=== PATIENT | female | born 1965 ===

== ENCOUNTER 2022-09-13 15:18 | Outpatient (REF) | payer MEDICARE, MEDICAID, SELFPAY ==
[2022-09-16 10:19] LABS: HPV mRNA E6/E7 rflx Detected (Not Detected)
[2022-09-30 07:54] LABS: HPV 16 RNA NOT DETECTED (NOT DETECTED)
== END 2022-09-13 15:19 | disposition home or self-care (01) ==
LOC: HO.LNP 15:18
PROVIDERS: PCP Internal Medicine; Visit Provider Obstetrics & Gynecology
DX: Z01.419 Encounter for gynecological examination (general) (routine) without abnormal findings (principal)
CPT/HCPCS: 87624; 87625; 88142

== ENCOUNTER 2022-10-19 08:34 | Outpatient (REF) | payer MEDICARE, MEDICAID, SELFPAY | END 2022-10-19 08:35 | disposition home or self-care (01) | LOC: HO.LNP 08:34 | PROVIDERS: PCP Internal Medicine; Visit Provider Obstetrics & Gynecology | DX: R87.810 Cervical high risk human papillomavirus (HPV) DNA test positive (principal) | CPT/HCPCS: 57454; 88305 ==

== ENCOUNTER → 2022-11-14 08:46 | Outpatient (BNVA) | payer MEDICARE, MEDICAID, SELFPAY | PROVIDERS: PCP Internal Medicine; Visit Provider Obstetrics & Gynecology | DX: N87.0 Mild cervical dysplasia (principal); Z71.2 Person consulting for explanation of examination or test findings | CPT/HCPCS: 99212 ==

== ENCOUNTER 2023-01-25 13:45 | Outpatient (AMB) | payer MEDICARE, MEDICAID, SELFPAY ==
[2023-01-25 13:54] VITALS: BP 118/70; PULSE 90; O2SAT 98; BMI 24.6
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
== END 2023-01-25 14:31 | disposition home or self-care (01) ==
PROVIDERS: PCP Internal Medicine; Visit Provider Nurse Practitioner Family
DX: M54.50 Low back pain, unspecified (principal); F31.9 Bipolar disorder, unspecified
CPT/HCPCS: 99213

== ENCOUNTER 2023-04-21 07:57 | Emergency (ER) | payer OTHER, SELFPAY ==
--- NOTE | ~2023-04-21 | CT_ITS ---
EXAMINATION: CT ABDOMEN AND PELVIS WITHOUT CONTRAST CLINICAL INFORMATION: Left-sided abdomen pain. Diarrhea COMPARISON: None available. TECHNIQUE: Multidetector volumetric imaging was performed from the superior aspect of the liver through the pubic symphysis. Sagittal and coronal reformatted images were obtained on the technologist's workstation. This CT examination was performed using dose optimization techniques as appropriate, variously including the following: *Automated exposure control *Adjustment of mA and/or kV according to patient size (this includes techniques or standardized protocols for targeted exams where dose is matched to indication/reason for exam; i.e. extremities or head) *Use of iterative reconstruction technique DLP: 516 mGy-cm FINDINGS: LUNG BASES: The visualized lung bases are unremarkable. There are a few scattered reticular lung base opacities greater on right. These have a subpleural distribution. This could reflect some fibrosis or evidence of remote pneumonia. LIVER, GALLBLADDER, AND BILIARY TREE: The liver contour is smooth. No suspicious focal lesion in this nonenhanced exam. The gallbladder is contracted. No opaque calculus. PANCREAS: No suspicious abnormality SPLEEN: Within normal limits ADRENAL GLANDS: Normal KIDNEYS AND URETERS: There is mild prominence of the renal pelvis and ureters on each side without distention of the infundibula or calyces. This extends to the level of the urinary bladder which is distended. There is a punctate calcification in the medial cortex of the right kidney. The appearance does not suggest this is within the collecting system. BLADDER: The bladder is distended. No focal lesion. GASTROINTESTINAL TRACT: There is gas and fecal residue throughout the colon greatest in the proximal colon. No localized pericolonic fat stranding. No evidence of high-grade small bowel obstruction. No convincing evidence of acute appendicitis. ABDOMINAL WALL: No significant hernia is appreciated. LYMPH NODES: There are no measurably enlarged abdominal or pelvic lymph nodes. VASCULAR: There is no abdominal aortic aneurysm. There is atherosclerotic calcification. PELVIC VISCERA: No suspicious abnormality. OSSEOUS STRUCTURES: No suspicious focal lesion. There are degenerative changes in the spine. CT/CT abdomen pelvis wo IV con IMPRESSION: No acute abnormality demonstrated. The urinary bladder is distended which likely accounts for mild fullness of the urinary collecting system on each side. Gas and fecal residue in the colon. Fleischner guidelines were followed.
[2023-04-21 08:09] VITALS: BP 144/84; PULSE 121; RESP 16; TEMP 36.8; O2SAT 99
--- NOTE | 2023-04-21 08:21 | ECG_ITS ---
Test Reason : NAUSEA Blood Pressure : / mmHG Vent. Rate : 098 BPM Atrial Rate : 098 BPM P-R Int : 134 ms QRS Dur : 068 ms QT Int : 330 ms P-R-T Axes : 048 002 -16 degrees QTc Int : 421 ms Normal sinus rhythm Nonspecific T wave abnormality Abnormal ECG No previous ECGs available Referred By: Mami Green Electronically Signed By:CHRISSIE MARIN MD
[2023-04-21 08:23] VITALS: BP 147/86; PULSE 96; RESP 18; TEMP 36.8; O2SAT 98; BMI 22.7
--- NOTE | 2023-04-21 08:52 | ED_ITS ---
HPI - General Adult General Chief complaint: General Medical Stated complaint: weakness, fall 04/20 Time Seen by Provider: 04/21/23 08:04 Source: patient Mode of arrival: ambulatory Limitations: no limitations History of Present Illness HPI narrative: 58 y/o female with history of pulmonary fibrosis, CKD III, bipolar disorder, chronic pain on chronic opiates who presents to the ER c/o 2 weeks of body aches, joint pains, left sided abdominal pain and green, watery diarrhea. She states yesterday she fell in the kitchen and hit her head on the side of the fridge. No LOC. She states she has had a shaking in my stomach like a vibration sensation that is causing her to have pain all over including all of her muscles and joints. She denies fevers but has had chills and no appetite. She has been trying to keep up her oral hydration w/ protein shakes. She denies vomiting. She has had green diarrhea which has significantly slowed down in the last few days, she thinks because she is not eating. No recent abx or travel. Seen at Urgent Care yesterday and started on amoxicillin for LLQ tenderness. MD complaint: abdominal pain, diffuse body pain Onset (ago): week(s) (2) Location: chest, back, abdomen, left, right, upper extremity and lower extremity Severity: severe Quality: aching Pain Consistency: constant Relieving factors: none Exacerbating factors: other (staying in 1 position for too long) Associated symptoms: loss of appetite, malaise and weakness Treatments prior to arrival: none Related Data Home Medications Medication Instructions Recorded Confirmed lamotrigine 200 mg tablet 200 mg PO BID 06/12/22 06/12/22 pantoprazole 20 mg tablet,delayed 20 mg PO DAILY 06/12/22 06/12/22 release risperidone 1 mg tablet (Risperdal) 1 mg PO BID 06/12/22 06/12/22 Previous Rx's Medication Instructions Recorded triamcinolone acetonide 0.5 % 1 appl topical BID #15 grams 06/12/22 topical cream diazepam 2 mg tablet (Valium) 2 mg PO BEDTIME PRN sleep #30 tabs 06/14/22 diclofenac sodium 1 % topical gel 4 g topical QID #100 grams 07/26/22 (Voltaren Arthritis Pain) benzonatate 100 mg capsule 100 mg PO BID #20 caps 07/27/22 fluticasone fur. 200 mcg-umeclid 1 inh inhalation DAILY #60 ea 09/11/22 62.5 mcg-vilant 25 mcg inhalat.powder (Trelegy Ellipta) albuterol sulfate 90 mcg/actuation 2 puff inhalation Q6H PRN for 11/10/22 aerosol inhaler (Ventolin HFA) wheezing #18 ea cyclobenzaprine 5 mg tablet 5 mg PO TID PRN muscle spasm #14 01/25/23 tabs sennosides 8.6 mg-docusate sodium 2 tab-cap (2 x 8.6-50 mg) PO 02/05/23 50 mg tablet (Senna-S) BEDTIME PRN constipation 30 days #60 tabs Allergies Allergy/AdvReac Type Severity Reaction Status Date / Time No Known Allergies Allergy Verified 04/21/23 08:28 Review of Systems 2 Review of Systems: Yes all other systems are reviewed and are negative [facility] Past Medical History Medical History History of esophageal dilatation Surgical History History of appendectomy History of back surgery History of carpal tunnel release History of facial surgery Family History Family History Father Brain tumor Son Alcohol abuse Mother Alcohol abuse Social History Social History Household Members Other:: son Housing: Apartment Alcohol intake: never Patient Tobacco Use Status: Former Tobacco user Years Smoked: quit 2013 1/2 pack a day 30 years e-Cigarette/Vaping Use: Never Used Advance Directives: No Advance Directives Information Provided: No Current occupational status: unemployed Sexual orientation: Straight/Heterosexual Gender identity: Female Cognitive needs: No Hearing needs: No Vision needs: No Physical Exam ED Vital Signs: Vital Signs - 24 hr 04/21/23 08:09 04/21/23 08:23 04/21/23 12:36 Temperature 98.3 F 98.3 F 98.1 F Pulse Rate 121 H 96 98 Respiratory Rate 16 18 18 Blood Pressure 144/84 H 147/86 H 149/91 H Pulse Oximetry 99 98 98 Oxygen Delivery Method Room Air Room Air Room Air BMI result Body Mass Index 22.7 Appearance: Alert. Oriented X3. No acute distress. Head: normocephalic, atraumatic. Eyes: Pupils equal, round and reactive to light. ENT: Pharynx normal. No tonsillar swelling or exudate. Neck: Normal inspection. Neck supple. CVS: Normal heart rate and rhythm. Pulses normal. Respiratory: No respiratory distress. Breath sounds normal. Abdomen: Soft with mild left upper quadrant tenderness, normal active +BS x4 Skin: Skin warm and dry. Normal skin color. Normal skin turgor. No rashes. Extremities: No lower extremity edema. No joint swelling. Compartments are soft and compressible. Neuro/psych: Oriented X 3. No motor deficit. No sensory deficit. CN II-XII intact. Normal speech and cognition. Steady gait Medications Administered Discontinued Medications Generic Name Dose Route Start Last Admin Trade Name Freq PRN Reason Stop Dose Admin Sodium Chloride 1,000 mls @ 999 mls/hr 04/21/23 08:30 04/21/23 11:54 Ns IVCONT 04/21/23 09:30 Infused .Q1H1M RAMÓN Infusion Sodium Chloride 1,000 mls @ 999 mls/hr 04/21/23 12:00 04/21/23 12:09 Ns IVCONT 04/21/23 13:00 999 mls/hr .Q1H1M RAMÓN Administration Ondansetron HCl 4 mg 04/21/23 11:50 04/21/23 12:04 Ondansetron Hcl 4 Mg/2 Ml Vial IVPUSH 04/21/23 11:51 4 mg ONCE ONE Administration Tramadol HCl 25 mg 04/21/23 11:50 04/21/23 12:03 Tramadol Hcl 50 Mg Tablet PO 04/21/23 11:51 25 mg ONCE ONE Administration Medical Decision Making Medical Decision Making MDM Narrative: 58 yo female presenting with 2 weeks of diffuse body aches and joint pain along with left sided abd pain and diarrhea. She has had decreased PO intake and is worried about her kidney function. recently started on abx for ?diverticulitis. VSS On arrival. exam is benign with some mild tenderness in the left middle abd and left upper abd. Labs show normal CBC. SCr 1.18. lytes ok. CT scan abd without any acute process and UA negative for infection. she was given IVF, antiemetics, tramadol for pain with some improvement in her symptoms. she states she has chronic pain and has been on tramadol for 14 years so it does not work very well. she is tolerating PO here in the ER and has had no BMs to collect stool sample. she would like to go home. at this time no reason to keep in the ER. comfortable w/ discharge home with supportive care and outpatient follow up. Differential Diagnosis Differential Diagnoses: The differential diagnosis associated with the presentation includes acute diverticulitis, bacterial vs viral gastroenteritis, cdiff, dehydration, metabolic abnormality, UTI, pyelonephritis, colitis, acute cholecystitis Admission/Observation Consideration of admission/observation: Escalation of care including admission/observation considered Lab Data MDM Lab Attestation statement: I reviewed the patient's lab results. 04/21/23 08:49 04/21/23 08:48 Labs: Lab Results 04/21/23 04/21/23 04/21/23 Range/Units 08:48 08:49 12:39 WBC 9.4 (4.8-10.8) X10*3/uL RBC 4.30 (4.20-5.50) X10*6/uL Hgb 13.4 (12.0-16.0) g/dl Hct 39.8 (37.0-47.0) % MCV 92.6 (80.0-98.0) fL MCH 31.2 (27.0-33.0) pg MCHC 33.7 (31.0-35.0) g/dl RDW 13.1 (11.0-16.0) % Plt Count 363 (160-400) X10*3/uL MPV 9.3 L (9.4-12.3) fL Immature Gran % (Auto) 0.3 (0.0-0.4) % Neut % (Auto) 69.5 (45-73) % Lymph % (Auto) 20.6 (20-40) % [place] % (Auto) 6.3 (2-11) % Eos % (Auto) 2.6 (0-4) % Baso % (Auto) 0.7 (0-2) % Lymph # (Auto) 1.9 (1.2-4.9) X10*3/uL [place] # (Auto) 0.6 (0.1-1.2) X10*3/uL Eos # (Auto) 0.2 (0.0-0.4) X10*3/uL Baso # (Auto) 0.1 (0.0-0.2) X10*3/uL Abs Immat Gran (auto) 0.03 (0.00-0.03) X10*3/uL Absolute Neuts (auto) 6.5 (2.0-8.3) x10*3/uL Absolute Nucleated RBC 0.000 (0.0-0.012) X10*3/uL Nucleated RBC % (auto) 0.0 (0.0-0.2) /100WBC ESR 26 H (0-20) MM/HR Sodium 140 (135-145) mmol/L Potassium 3.9 (3.3-5.1) mmol/L Chloride 107 (96-108) mmol/L Carbon Dioxide 24 (22-29) mmol/L Anion Gap 13 (12-20) BUN 21 H (9-16) mg/dL Creatinine 1.13 (0.5-1.4) mg/dL Estim Creat Clear Calc 48.2 Estimated GFR 49 Random Glucose 91 (60-115) mg/dL Calcium 10.2 (8.4-10.2) mg/dL Magnesium 2.2 (1.6-2.6) mg/dL Total Bilirubin 0.7 (0.0-1.0) mg/dL Direct Bilirubin 0.2 (0.0-0.5) mg/dL AST 14 (5-31) U/L ALT 11 (0-31) U/L Alkaline Phosphatase 82 (39-117) U/L Total Creatine Kinase 18 L (26-140) U/L Troponin I High Sens < 2.7 (<3.5-17.0) ng/L C-Reactive Protein 0.22 (< or = 0.50) mg/dL Total Protein 7.6 (6.5-8.0) g/dL Albumin 4.2 (3.5-5.0) g/dL Urine Color Yellow Urine Appearance Clear Urine pH 6.5 (5.0-9.0) Ur Specific [place] 1.010 (1.005-1.025) Urine Protein Negative (Neg-Trace) mg/dL Urine Glucose (UA) Negative (Negative) mg/dL Urine Ketones Negative (Negative) mg/dL Urine Blood Negative (Negative) Urine Nitrite Negative (Negative) Ur Leukocyte Esterase Trace H (Negative) Urine RBC 0-2 (0-2) /HPF Urine WBC 0-5 (0-5) /HPF Ur Squamous Epith Cells 0-2 (0-2) /HPF Urine Bacteria None Seen (None Seen) Hyaline Casts 0-2 (0-2) /LPF Independent Interpretation I performed an independent interpretation of an: EKG and CT Scan Interpretation: no pericolonic stranding or abscess, agree w/ radiology read ekg w/ normal sinus rhythm, HR 100 bpm, normal OR interval, no ST segment elevations or depressions Radiology Impression Discussion of test interpretation with radiology: I have reviewed the radiologist's reading. Radiologist Impression: CT/CT abdomen pelvis wo IV con IMPRESSION: No acute abnormality demonstrated. The urinary bladder is distended which likely accounts for mild fullness of the urinary collecting system on each side. Gas and fecal residue in the colon. External Record Review External record reviewed: Office record and Prior outpatient radiology Prescription Management I considered prescription management with: Pain Medication Chronic Conditions Patient?s care impacted by: Other (chronic pain on chronic opiates) Critical Care Time Critical Care Time Critical Care Time: No Discharge Plan Discharge Clinical Impression: Gastroenteritis Patient Disposition: Home, Self-Care Instructions: Gastroenteritis (DC) Additional Instructions: Your CT scan today was normal. You lab workup today was unremarkable. Recommend stopping the previously prescribed antibiotics. Take the prescribed Bentyl as directed. Follow-up with your primary care doctor. You lab workup today was unremarkable. You most likely have a viral GI bug also known as gastroenteritis. Treatment is supportive care, symptoms usually resolve on their own Recommend rest and plenty of oral hydration. Stick to a bland diet like soup and toast while you are not feeling well. Take the prescribed medication as needed for nausea. Recommend over the counter Pepto Bismol or Imodium for upset stomach and diarrhea. Follow up with your doctor as needed. If you develop new or worsening symptoms call 911 or come back to the ER for further evaluation. Prescriptions: No Action diazepam [Valium] 2 mg tablet 2 mg PO BEDTIME PRN (Reason: sleep) Qty: 30 0RF diclofenac sodium [Voltaren Arthritis Pain] 1 % gel 4 g topical QID Qty: 100 0RF Rx Instructions: apply to single knee, ankle, foot; for foot includes sole/toes/top of foot benzonatate 100 mg capsule 100 mg PO BID Qty: 20 0RF albuterol sulfate [Ventolin HFA] 90 mcg/actuation HFA aerosol inhaler 2 puff inhalation Q6H PRN (Reason: for wheezing) Qty: 18 1RF sennosides-docusate sodium [Senna-S] 8.6-50 mg tablet 2 tab-cap PO BEDTIME PRN (Reason: constipation) 30 Days Qty: 60 2RF lamotrigine 200 mg tablet 200 mg PO BID risperidone [Risperdal] 1 mg tablet 1 mg PO BID pantoprazole 20 mg tablet,delayed release (DR/EC) 20 mg PO DAILY triamcinolone acetonide 0.5 % cream 1 appl topical BID Qty: 15 0RF cyclobenzaprine 5 mg tablet 5 mg PO TID PRN (Reason: muscle spasm) Qty: 14 0RF Trelegy Ellipta 200-62.5-25 mcg blister with device 1 inh inhalation DAILY Qty: 60 5RF Referrals: Po,Nghia Nava MD [Primary Care Provider] -
[2023-04-21 08:54] LABS: MANUAL DIFF FLAG NO
[2023-04-21 08:57] LABS: Basophils Absolute Auto 0.1 X10*3/uL (0.0-0.2); Basophils Percent Auto 0.7 % (0-2); Eosinophils Absolute Auto 0.2 X10*3/uL (0.0-0.4); Eosinophils Percent Auto 2.6 % (0-4); Hematocrit 39.8 % (37.0-47.0); Hemoglobin 13.4 g/dl (12.0-16.0); Imm Gran Abs Auto 0.03 X10*3/uL (0.00-0.03); Imm Gran Pct Auto 0.3 % (0.0-0.4); Lymphocytes Absolute Auto 1.9 X10*3/uL (1.2-4.9); Lymphocytes Percent Auto 20.6 % (20-40); Mean Corpuscular HGB Conc 33.7 g/dl (31.0-35.0); Mean Corpuscular Hemoglobin 31.2 pg (27.0-33.0); Mean Corpuscular Volume 92.6 fL (80.0-98.0); Mean Platelet Volume 9.3 fL (9.4-12.3); Monocytes Absolute Auto 0.6 X10*3/uL (0.1-1.2); Monocytes Percent Auto 6.3 % (2-11); Neutrophils Absolute Auto 6.5 x10*3/uL (2.0-8.3); Neutrophils Percent Auto 69.5 % (45-73); Platelet Count 363 X10*3/uL (160-400); Red Cell Distribution Width 13.1 % (11.0-16.0); White Blood Count 9.4 X10*3/uL (4.8-10.8)
[2023-04-21 09:20] LABS: Alanine Aminotransferase 11 U/L (0-31); Albumin Level 4.2 g/dL (3.5-5.0); Alkaline Phosphatase 82 U/L (39-117); Anion Gap 13 (12-20); Aspartate Amino Transferase 14 U/L (5-31); Bilirubin Direct 0.2 mg/dL (0.0-0.5); Bilirubin Total 0.7 mg/dL (0.0-1.0); Blood Urea Nitrogen 21 mg/dL (9-16); C Reactive Protein 0.22 mg/dL (< or = 0.50); Calcium 10.2 mg/dL (8.4-10.2); Carbon Dioxide 24 mmol/L (22-29); Chloride 107 mmol/L (96-108); Creatinine Clr Calc Pharmacy 48.2; Estimated Glomerular Filt Rate 49; Glucose Random 91 mg/dL (60-115); Magnesium 2.2 mg/dL (1.6-2.6); Potassium 3.9 mmol/L (3.3-5.1); Sodium 140 mmol/L (135-145); Total Protein 7.6 g/dL (6.5-8.0)
[2023-04-21] MEDS: 0.9 % Sodium Chloride 1,000 ML 999 ML IVCONT ×2 (09:32→12:09)
[2023-04-21 09:34] LABS: Troponin-I High Sensitivity < 2.7 ng/L (<3.5-17.0)
[2023-04-21 10:07] LABS: Erythrocyte Sedimentation Rate 26 MM/HR (0-20)
[2023-04-21] MEDS: traMADoL HCL 50 MG TABLET 25 MG PO (12:03)
[2023-04-21] MEDS: ondansetron HCL 4 MG/2 ML VIAL IVPUSH (12:04)
[2023-04-21 12:36] VITALS: BP 149/91; PULSE 98; RESP 18; TEMP 36.7; O2SAT 98
[2023-04-21 12:48] LABS: Appearance Urine Clear; Color Urine Yellow; Glucose Urine UA Negative (Negative); Leukocyte Esterase Urine Trace (Negative); Nitrite Urine Negative (Negative); PH 6.5 (5.0-9.0); UMIC TRIGGER UACC YES; Urine Blood Negative (Negative); Urine Ketones Negative (Negative); Urine Protein Negative (Neg-Trace)
[2023-04-21 13:03] LABS: Bacteria Urine None Seen (None Seen); Hyaline Casts Urine 0-2 /LPF (0-2); RBC Urine 0-2 /HPF (0-2); Squamous Epithelial Cell Urine 0-2 /HPF (0-2); WBC Urine 0-5 /HPF (0-5)
== END 2023-04-21 13:45 | disposition home or self-care (01) ==
PROVIDERS: Physician Assistant; Emergency Provider Internal Medicine; PCP Internal Medicine
DX: K52.9 Noninfective gastroenteritis and colitis, unspecified (principal); R53.1 Weakness; N18.30 Chronic kidney disease, stage 3 unspecified; G89.4 Chronic pain syndrome; Z79.891 Long term (current) use of opiate analgesic; Z87.891 Personal history of nicotine dependence
CPT/HCPCS: 0241U; 36415; 74176; 80048; 80076; 81001; 81003; 82550; 83735; 84484; 85025; 85652; 86140; 93005; 96361; 96374; 99284; J2405

== ENCOUNTER 2023-05-09 10:17 | Outpatient (AMB) | payer MEDICARE, MEDICAID, SELFPAY ==
--- NOTE | 2023-05-09 10:27 | MHC.PC.OV ---
Vital Signs 05/09/23 10:31 Height 5 ft 5 in Weight 128 lb 2 oz BMI 21.3 BP 110/72 Blood Pressure Location Lt brachial Position Sitting Pulse 78 Pulse Source Pulse Oximeter Pulse Oximetry (%) 97 Oxygen Delivery Method Room Air Intake Visit Reasons: Follow Up From urgent Care Intake Note: Patient is here to follow-up after a visit the emergency department at [facility] [place] on 04/24/23. Memory loss, loss of appetite, vomiting, no sense of smell and taste. Cable Inspector Required: No Matt[employer] Supervisor: Present Accompanied by: Friend Allergies No Known Allergies Allergy (Verified 05/09/23 10:30) Medication List - Last Reconciled 05/09/23 by Nghia Miner MD albuterol sulfate 90 mcg/actuation (Ventolin HFA) 2 puffs inhalation Q6H PRN buspirone 10 mg PO BID cyclobenzaprine 5 mg PO TID PRN diclofenac sodium 1% (Voltaren Arthritis Pain) 4 grams topical QID gpkqhebyvnz-pfbbbnwet-tbnkqkgg 200-62.5-25 mcg (Trelegy Ellipta) 1 inh inhalation DAILY lamotrigine 200 mg PO BID pantoprazole 20 mg PO DAILY risperidone (Risperdal) 1 mg PO BID triamcinolone acetonide 0.5% 1 appl topical BID Tobacco use date assessed: 05/09/23 Dental Screening Dental Screen Date: 05/09/23 Did you have a dental visit in the last 12 months?: Yes Did you have a dental problem in the last 6 months where you did not have access to dental care?: No Was dental information given to patient?: Patient has dentist HPI Follow Up From urgent Care HPI Details 58-year-old female with GERD bipolar disorder chronic kidney disease coming in for follow-up. Last seen in December 2022 had low back pain patient has declined physical therapy muscle relaxants sent. Patient is due for mammogram. Review of the notes 04/21/2023 was in the emergency room presenting in the ER with myalgia left-sided abdominal pain and watery diarrhea diagnosis of gastroenteritis CT scan negative. Patient had some notes from 2013 showing neck problems had injections. PAtient states still having diarrhea and states. [facility] Medical History History of esophageal dilatation Surgical History History of back surgery History of carpal tunnel release History of facial surgery History of appendectomy Family History Father Brain tumor Son Alcohol abuse Mother Alcohol abuse Social History Household Members Other:: son Housing: Apartment Alcohol intake: never Patient Tobacco Use Status: Former Tobacco user Years Smoked: quit 2013 1/2 pack a day 30 years e-Cigarette/Vaping Use: Never Used Second Hand Smoke Exposure: No service: No Current occupational status: unemployed Sexual orientation: Straight/Heterosexual Gender identity: Female Cognitive needs: No Hearing needs: No Vision needs: No Female Reproductive History Menstrual Age of Menarche: 14 Questionnaire Thrive Questionnaire Date Thrive assessed: 01/25/23 REYES-7 AMB Questionnaire REYES-7 Date REYES - 7 assessed: 01/25/23 Source: Developed by Drs. Romulo Azevedo, Iva Calderon, Estrada Jenkins and colleagues, with an educational joao from [employer]. Physical exam (Primary Care) Vital Signs: Last Vital Signs Pulse 78 05/09/23 10:31 BP 110/72 05/09/23 10:31 Pulse Ox 97 05/09/23 10:31 Oxygen Delivery Method Room Air 05/09/23 10:31 BMI result Body Mass Index 21.3 Tobacco/Smoking Status: Tobacco use Status Tobacco use date assessed 05/09/23 05/09/23 10:43 Patient Tobacco Use Status Former Tobacco user 05/09/23 10:43 e-Cigarette/Vaping Use Never Used 05/09/23 10:43 Thrive Assessment: Date of Thrive Assessment Date Thrive assessed 01/25/23 05/09/23 10:43 Const General: alert; No acute distress Eyes Conjunctivae: conjunctivae normal Resp Auscultation: clear to auscultation bilaterally Cardio Rate: regular rate Rhythm: regular rhythm GI Other: Soft tender diffuse no guarding no rebound ++bowel sounds Extrem General: Yes normal to inspection and No edema Assessment and Plan Assessment & Plan (1) Gastroenteritis: Code(s): K52.9 - Noninfective gastroenteritis and colitis, unspecified Plan: BR AT diet, blood work discussed and Ct scan - will refer to GI. Stop protein shakes, nausea medication sent bland diet (2) CKD (chronic kidney disease): Code(s): N18.9 - Chronic kidney disease, unspecified Plan: Keep well hydrated avoid NSAIDs (3) Pulmonary fibrosis: Comment: CT scan July 2022 Code(s): J84.10 - Pulmonary fibrosis, unspecified Plan: Continue to follow-up with Pulmonary (4) Bipolar disorder: Comment: family counselling Code(s): F31.9 - Bipolar disorder, unspecified Plan: Continue with counseling and therapy (5) Breast cancer screening by mammogram: Comment: Kristie 04/2022 Code(s): Z12.31 - Encounter for screening mammogram for malignant neoplasm of breast Plan: Reminded about mammogram (6) GERD (gastroesophageal reflux disease): Code(s): K21.9 - Gastro-esophageal reflux disease without esophagitis Plan: Avoid the foods that causes that usually spicy foods, tomato products, juices, coffee, soda and foods that your sensitive to. After eating do not lie down, allow 3-4 hours before in lie down. And keep the head of bed above 30 degrees to avoid the acid from going up. (7) Insomnia: Code(s): G47.00 - Insomnia, unspecified Orders: Orders Phosphorus Today K52.9 - Noninfective gastroenteritis and colitis, unspecified H pylori Ag Stool Today K52.9 - Noninfective gastroenteritis and colitis, unspecified Leukocytes Stool Qualitative Today K52.9 - Noninfective gastroenteritis and colitis, unspecified Magnesium Today K52.9 - Noninfective gastroenteritis and colitis, unspecified Ova and Parasite Today K52.9 - Noninfective gastroenteritis and colitis, unspecified Referrals Gastroenterology Referral K52.9 - Noninfective gastroenteritis and colitis, unspecified Medications: New ropinirole administer 1-3 hours before bedtime 0.5 mg PO BEDTIME 30 tabs 0RF ondansetron 8 mg PO Q8H PRN 30 tabs 0RF nausea and vomiting K52.9 - Noninfective gastroenteritis and colitis, unspecified trazodone 50 mg PO BEDTIME PRN 30 tabs 0RF sleep G47.00 - Insomnia, unspecified Coding Level of Care Code Est Pt Level 4 (06972) Diagnoses Gastroenteritis K52.9 CKD (chronic kidney disease) N18.9 Pulmonary fibrosis J84.10 Bipolar disorder F31.9 Breast cancer screening by mammogram Z12.31 GERD (gastroesophageal reflux disease) K21.9 Insomnia G47.00
[2023-05-09 10:31] VITALS: BP 110/72; PULSE 78; O2SAT 97; BMI 21.3
== END 2023-05-09 11:33 | disposition home or self-care (01) ==
PROVIDERS: PCP Internal Medicine; Visit Provider Internal Medicine
DX: K52.9 Noninfective gastroenteritis and colitis, unspecified (principal); N18.9 Chronic kidney disease, unspecified; J84.10 Pulmonary fibrosis, unspecified; F31.9 Bipolar disorder, unspecified; Z12.31 Encounter for screening mammogram for malignant neoplasm of breast; K21.9 Gastro-esophageal reflux disease without esophagitis; G47.00 Insomnia, unspecified
CPT/HCPCS: 99214

== ENCOUNTER 2023-05-09 11:39 | Outpatient (REF) | payer MEDICARE, MEDICAID, SELFPAY ==
[2023-05-09 11:56] LABS: MANUAL DIFF FLAG NO
[2023-05-09 12:18] LABS: Basophils Absolute Auto 0.1 X10*3/uL (0.0-0.2); Eosinophils Absolute Auto 0.1 X10*3/uL (0.0-0.4); Eosinophils Percent Auto 1.1 % (0-4); Hematocrit 41.4 % (37.0-47.0); Imm Gran Abs Auto 0.05 X10*3/uL (0.00-0.03); Imm Gran Pct Auto 0.4 % (0.0-0.4); Lymphocytes Percent Auto 26.2 % (20-40); Mean Corpuscular HGB Conc 33.8 g/dl (31.0-35.0); Mean Corpuscular Hemoglobin 31.3 pg (27.0-33.0); Mean Corpuscular Volume 92.6 fL (80.0-98.0); Mean Platelet Volume 9.6 fL (9.4-12.3); Monocytes Absolute Auto 0.6 X10*3/uL (0.1-1.2); Monocytes Percent Auto 5.7 % (2-11); Neutrophils Absolute Auto 7.4 x10*3/uL (2.0-8.3); Neutrophils Percent Auto 65.6 % (45-73); Platelet Count 705 X10*3/uL (160-400); Red Blood Count 4.47 X10*6/uL (4.20-5.50); Red Cell Distribution Width 13.1 % (11.0-16.0); White Blood Count 11.3 X10*3/uL (4.8-10.8)
[2023-05-09 12:47] LABS: Alanine Aminotransferase 14 U/L (0-31); Albumin Level 4.3 g/dL (3.5-5.0); Alkaline Phosphatase 88 U/L (39-117); Anion Gap 16 (12-20); Aspartate Amino Transferase 15 U/L (5-31); Bilirubin Total 0.5 mg/dL (0.0-1.0); Blood Urea Nitrogen 20 mg/dL (9-16); Carbon Dioxide 25 mmol/L (22-29); Chloride 101 mmol/L (96-108); Cholesterol 207 mg/dL (<200); Estimated Glomerular Filt Rate 44; Glucose Random 103 mg/dL (60-115); HDL Cholesterol 53 mg/dL (>40); LDL Cholesterol Calculated 134 mg/dL (<100); Magnesium 2.4 mg/dL (1.6-2.6); Phosphorus 4.3 mg/dL (2.7-4.5); Sodium 138 mmol/L (135-145); Total Protein 8.4 g/dL (6.5-8.0); Triglycerides 104 mg/dL (<150)
[2023-05-09 13:02] LABS: Free T4 (Free Thyroxine) 1.08 ng/dL (0.71-1.85); Thyroid Stimulating Hormone 1.56 uIU/mL (0.32-4.0); Vitamin D 25-OH Total 53.7 ng/mL (>30)
[2023-05-09 13:14] LABS: Folate 14.4 ng/mL (> or = 4.0); Vitamin B12 1124 pg/mL (200-900)
== END 2023-05-09 11:40 | disposition home or self-care (01) ==
LOC: HO.LAB 11:39
PROVIDERS: PCP Internal Medicine; Visit Provider Internal Medicine
DX: E78.00 Pure hypercholesterolemia, unspecified (principal); K21.9 Gastro-esophageal reflux disease without esophagitis; K52.9 Noninfective gastroenteritis and colitis, unspecified; E55.9 Vitamin D deficiency, unspecified
CPT/HCPCS: 36415; 80053; 80061; 82306; 82607; 82746; 83735; 84100; 84439; 84443; 85025

== ENCOUNTER 2023-05-15 13:06 | Outpatient (AMB) | payer MEDICARE, MEDICAID, SELFPAY ==
[2023-05-15 13:08] VITALS: BP 146/66; PULSE 98; O2SAT 96; BMI 23.0
--- NOTE | 2023-05-15 13:08 | A.OFFPC_ITS ---
Vital Signs 05/15/23 13:08 Height 5 ft 5 in Weight 138 lb 0.6 oz BMI 23.0 BP 146/66 H Blood Pressure Location Lt brachial Position Sitting Pulse 98 Pulse Source Pulse Oximeter Pulse Oximetry (%) 96 Oxygen Delivery Method Room Air Intake Visit Reasons: Swollen Lymph nodes, vomiting Intake Note: pt states nausea and vomiting, swollen glands and headache Heel Seat Fitter Machine Required: No Allergies No Known Allergies Allergy (Verified 05/15/23 13:17) Medication List - Last Reconciled 05/15/23 by DAX Vargas albuterol sulfate 90 mcg/actuation (Ventolin HFA) 2 puffs inhalation Q6H PRN buspirone 10 mg PO BID cyclobenzaprine 5 mg PO TID PRN diclofenac sodium 1% (Voltaren Arthritis Pain) 4 grams topical QID jbyhudyvvmr-nkuihriwk-ahbvpjqv 200-62.5-25 mcg (Trelegy Ellipta) 1 inh inhalation DAILY lamotrigine 200 mg PO BID ondansetron 8 mg PO Q8H PRN pantoprazole 20 mg PO DAILY risperidone (Risperdal) 1 mg PO BID ropinirole 0.5 mg PO BEDTIME trazodone 50 mg PO BEDTIME PRN triamcinolone acetonide 0.5% 1 appl topical BID Tobacco use date assessed: 05/15/23 Dental Screening Dental Screen Date: 05/15/23 Did you have a dental visit in the last 12 months?: Yes Did you have a dental problem in the last 6 months where you did not have access to dental care?: No Was dental information given to patient?: Patient has dentist HPI Swollen Lymph nodes, vomiting HPI Details Patient is a 58-year-old female who presents today for the same day visit due to swollen lymph nodes for the past couple days and vomiting/nausea for the past [address] Miner. Medical history significant for GERD, bipolar disorder, CKD, constipation, insomnia, thrombocytosis-will have repeat blood work tomorrow-platelets 705 05/2023. Patient reports that 04/2023 she went to urgent care and was diagnosed with diverticulitis and she was treated with antibiotics doxycycline and amoxicillin for 10 days, then she went to [facility] and had abdominal CT scan done with no acute abnormality, she was discharged home with gastroenteritis 04/2023. Patient was seen by her PCP 05/09/2023 due to continued symptoms and blood work was ordered as well as stool samples and GI referral was placed-patient will be seeing [facility] 06/13/2023. Patient reports that she is not eating enough, reports having you bites of food today and then she vomited, reports taking Zofran as prescribed with no much improvement in nausea. Reports generalized abdominal pain. Reports diarrhea for 4 weeks in the past, no bowel movement for 6 days now after taking Imodium, reports passing gas. Reports taking senna last night. Reports neck pain due to neck lumps for the past couple days, no ear pain, no sore throat, no fever or chills. Reports she will be taking aleve now for pain. Also requesting opioids for pain, declined refill on cyclobenzaprine. Also reports that trazodone is not helping her with sleep, would like to try something else. 04/21/2023 CT/CT abdomen pelvis wo IV con IMPRESSION: No acute abnormality demonstrated. The urinary bladder is distended which likely accounts for mild fullness of the urinary collecting system on each side. Gas and fecal residue in the colon. [facility] Medical History History of esophageal dilatation Surgical History History of back surgery History of carpal tunnel release History of facial surgery History of appendectomy Family History Father Brain tumor Son Alcohol abuse Mother Alcohol abuse Social History Household Members Other:: son Housing: Apartment Alcohol intake: never Patient Tobacco Use Status: Former Tobacco user Years Smoked: quit 2013 1/2 pack a day 30 years e-Cigarette/Vaping Use: Never Used Second Hand Smoke Exposure: No service: No Current occupational status: unemployed Sexual orientation: Straight/Heterosexual Gender identity: Female Cognitive needs: No Hearing needs: No Vision needs: No Female Reproductive History Menstrual Age of Menarche: 14 Questionnaire Thrive Questionnaire Date Thrive assessed: 01/25/23 AUDIT C Alcohol Use Questionnaire (AUDIT-C) 1. How often do you have a drink containing alcohol?: Never 2. How many drinks containing alcohol do you have on a typical day when you are drinking?: 1 or 2 (0) 3. How often do you have six or more drinks on one occasion?: Never Total Score: 0 Score Reviewed/Action Taken: No REYES-7 AMB Questionnaire REYES-7 Date REYES - 7 assessed: 01/25/23 Source: Developed by Drs. Romulo Azevedo, Iva Calderon, Estrada Jenkins and colleagues, with an educational joao from [employer]. Review of Systems Const Denies body aches, Denies chills, Reports difficulty sleeping, Denies fever(s) and Reports headache(s) ENT Details: Neck pain Denies dizziness, Denies otalgia, Reports headache(s), Denies nasal discharge, Denies sinus pain and Denies sore throat Card Denies chest pain, Denies edema, Denies lightheadedness and Denies dyspnea Resp Denies cough, Denies dyspnea and Denies wheezing GI Reports abdominal pain, Reports bloating, Denies constipation, Denies diarrhea, Reports nausea and Reports vomiting Denies dysuria Musc Denies myalgias Skin/Breast Reports as per HPI and Denies rash Neuro Denies dizziness and Reports headache(s) Aller/Immun Denies wheezing Physical exam (Primary Care) Vital Signs: Last Vital Signs Pulse 98 05/15/23 13:08 BP 146/66 H 05/15/23 13:08 Pulse Ox 96 05/15/23 13:08 Oxygen Delivery Method Room Air 05/15/23 13:08 BMI result Body Mass Index 23.0 Tobacco/Smoking Status: Tobacco use Status Tobacco use date assessed 05/15/23 05/15/23 13:09 Patient Tobacco Use Status Former Tobacco user 05/15/23 13:09 e-Cigarette/Vaping Use Never Used 05/15/23 13:09 Thrive Assessment: Date of Thrive Assessment Date Thrive assessed 01/25/23 05/15/23 13:09 Const General: cooperative and no acute distress Orientation/consciousness: patient oriented x3 HENMT Head: Yes normocephalic and Yes atraumatic Ears: TM's normal bilaterally Face and sinus: Yes sinuses nontender Mouth: oropharynx normal and moist mucous membranes Throat: Yes posterior oropharynx normal Eyes General: appearance normal, both eyes and all related structures Pupils: Equal, round and reactive pupils present Neck Other: Bilateral neck inferior to ears with tender lumps about 1 cm, skin is intact Neck: Yes normal visual inspection and Yes full ROM Resp Effort & Inspection: normal respiratory effort and able to speak in complete sentences Auscultation: clear to auscultation bilaterally, no crackles, no rales, no rhonchi and no wheezes Cardio Rate: regular rate Rhythm: regular rhythm Heart sounds: S1 normal heart sound present and S2 normal heart sound present GI Palpation (GI): Soft to palpation, not firm, Tenderness to palpation present (GI) in the RUQ; with no rebound tenderness, no guarding, not rigid and no hepatosplenomegaly Auscultation: normal bowel sounds Skin General skin exam: no rashes or lesions noted Neuro General: patient oriented x3 Cranial nerves: Yes Equal, round and reactive pupils present Gait exam (Neuro): Normal gait present Extrem General: Yes full ROM and No edema Assessment and Plan Assessment & Plan (1) Localized swelling, mass and lump, neck: Code(s): R22.1 - Localized swelling, mass and lump, neck Plan: Bilateral neck inferior to ears with tender lumps about 1 cm, skin is intact Will obtain ultrasound Offered patient to sent ibuprofen-she has declined, also offered to send cyclobenzaprine-she has declined Patient is to continue taking iuzc-qhy-vlyudui Aleve as needed Encouraged warm compresses p.r.n. Patient requested opioids for pain - she was notified that this [facility] will not prescribe opioids (2) Insomnia: Code(s): G47.00 - Insomnia, unspecified Plan: Stop trazodone Start Seroquel 25 mg at bedtime p.r.n. Sleep hygiene (3) Thrombocytosis: Code(s): D75.839 - Thrombocytosis, unspecified Plan: Platelets 705 05/2023 Patient is to recheck blood work tomorrow, she has orders from her PCP (4) Nausea and vomiting: Code(s): R11.2 - Nausea with vomiting, unspecified Plan: [place] diet Continue Zofran 8 mg every 8 hours p.r.n. Keep appointment with GI as scheduled Plan Keep appointment with PCP as scheduled or follow-up sooner as needed Patient also will need to complete stool samples that were ordered by her PCP when starts moving bowels, she reports passing gas now Orders: Orders US soft tiss head and/or neck Today R22.1 - Localized swelling, mass and lump, neck Medications: New quetiapine (Seroquel) 25 mg PO BEDTIME PRN 30 tabs 0RF sleep G47.00 - Insomnia, unspecified Discontinued trazodone Discontinued Reason: Doctor's Order 50 mg PO BEDTIME PRN 30 tabs 0RF sleep G47.00 - Insomnia, unspecified Coding Level of Care Code Est Pt Level 4 (06769) Diagnoses Localized swelling, mass and lump, neck R22.1 Insomnia G47.00 Thrombocytosis D75.839 Nausea and vomiting R11.2
== END 2023-05-15 14:02 | disposition home or self-care (01) ==
PROVIDERS: PCP Internal Medicine; Visit Provider Nurse Practitioner Family
DX: R22.1 Localized swelling, mass and lump, neck (principal); G47.00 Insomnia, unspecified; D75.839 Thrombocytosis, unspecified; R11.2 Nausea with vomiting, unspecified
CPT/HCPCS: 99214

== ENCOUNTER 2023-06-13 11:55 | Outpatient (REF) | payer MEDICARE, MEDICAID, SELFPAY ==
[2023-06-13 15:15] LABS: C Reactive Protein 1.59 mg/dL (< or = 0.50)
[2023-06-14 12:48] LABS: Transglutaminase Ab IgG 2.3 U/mL; Transglutaminase IgA <1.0 U/mL
== END 2023-06-13 11:56 | disposition home or self-care (01) ==
LOC: HO.LAB 11:55
PROVIDERS: PCP Internal Medicine; Visit Provider Nurse Practitioner
DX: R11.2 Nausea with vomiting, unspecified (principal); R19.7 Diarrhea, unspecified; Z87.11 Personal history of peptic ulcer disease; Z91.09 Other allergy status, other than to drugs and biological substances
CPT/HCPCS: 36415; 86003; 86140; 86364; 99202

== ENCOUNTER 2023-06-13 11:55 | Outpatient (AMB) | payer MEDICARE, MEDICAID, SELFPAY ==
--- NOTE | 2023-06-13 11:56 | A.OFFVIS_ITS ---
Intake Vital Signs 3 06/13/23 11:57 Height 5 ft 5 in Weight 135 lb 5.821 oz BMI 22.5 BP 117/55 L Blood Pressure Location Lt brachial Position Sitting Pulse 111 H Intake Visit Reasons: Gastroenteritis and colitis Intake Note: Patient presents to in office visit today as a new patient for gastroenteritis and colitis. CC: Pt states she was very sick for 3 months, sometimes she can't eat food at all and other times she eats it and throws it back up. She also c/o neck pain, swelling from lymph nodes, weakness, headache, very high leukocytes. Patient with acid reflux, constipation, and diarrhea. She also reports renal failure and pulmonary fibrosis. She s/p esophagus dilation about 4 years ago in [place]. [employer] Required: No Allergies No Known Allergies Allergy (Verified 06/13/23 12:02) HPI Gastroenteritis and colitis 2 HPI0 Details 58-year-old female here for initial eval uation of ?gastroenteritis and colitis. ? she is referred by Hector Duong of [facility] primary care. PMX Pulmonary fibrosis chronic kidney disease bipolar disorder GERD Constipation History of abnormal Pap smear Thrombocytosis History of esophageal stricture with dilation Chronic neck and back pain Knee pain History of peptic ulcer disease * SURGICAL HISTORY Back and neck surgery - RFA lumbar, ? cervical discectomy PSSP Carpal tunnel release Facial surgery - reconstruction Appendectomy EGD/colonoscopy-4 years ago in [place] Laparoscopy r/t infected IUD C section * ALLERGIES: NKDA . * [employer] LABS: Laboratory Tests 04/21/23 05/09/23 05/09/23 08:49 11:54 11:54 WBC 11.3 H Hgb 14.0 Hct 41.4 Plt Count 705 H D Abs Immat Gran (au to) 0.05 H ESR 26 H Estimated GFR 44 Total Bilirubin 0.5 AST 15 ALT 14 Alkaline Phosphata se 88 TSH 1.[address] ABDOMEN AND PELVIS 04/21/23 FINDINGS: LUNG BASES: The visualized lung bases are unremarkable. There are a few scattered reticular lung base opacities greater on right. These have a subpleural distribution. This could reflect some fibrosis or evidence of remote pneumonia. LIVER, GALLBLADDER, AND BILIARY TREE: The liver contour is smooth. No suspicious focal lesion in this nonenhanced exam. The gallbladder is contracted. No opaque calculus. PANCREAS: No suspicious abnormality SPLEEN: Within normal limits ADRENAL GLANDS: Normal KIDNEYS AND URETERS: There is mild prominence of the renal pelvis and ureters on each side without distention of the infundibula or calyces. This extends to the level of the urinary bladder which is distended. There is a punctate calcification in the medial cortex of the right kidney. The appearance does not suggest this is within the collecting system. BLADDER: The bladder is distended. No focal lesion. GASTROINTESTINAL TRACT: There is gas and fecal residue throughout the colon greatest in the proximal colon. No localized pericolonic fat stranding. No evidence of high-grade small bowel obstruction. No convincing evidence of acute appendicitis. ABDOMINAL WALL: No significant hernia is appreciated. LYMPH NODES: There are no measurably enlarged abdominal or pelvic lymph nodes. VASCULAR: There is no abdominal aortic aneurysm. There is atherosclerotic calcification. PELVIC VISCERA: No suspicious abnormality. OSSEOUS STRUCTURES: No suspicious focal lesion. There are degenerative changes in the spine. CT/CT abdomen pelvis wo IV con IMPRESSION: No acute abnormality demonstrated. The urinary bladder is distended which likely accounts for mild fullness of the urinary collecting system on each side. Gas and fecal residue in the colon. TODAY'S VISIT She has had about 3 mos of trouble, she spent 7-9 weeks in bed as she was so weak she could not get up. She could not eat, the smell and taste of food would make her vomit. She could only take sips of fluids and she survived sipping on Protein shakes. She had to crawl to her BR she was so weak. No stool studies done despite copious watery diarrhea. She took imodium and then she could not produce a sample. Since she has had some stools that are like bricks or it is watery. Prior to this she struggles with CIC. Her father also struggled with CIC and would pass out from pushing. He also has leudocytosis and he of brain cancer. She is quite concerned that she may have some lingering malignancy since her leukocytosis is worsening per her report. Since these labs were taken at [facility] I do not have access to them. she presented to an Urgent Care in [place] and they said she had TICS, but no improvement. She called her PCP and he directed her to the ER and they said it was gastroenteritis, I just had to ride it out. She saw Dr. Miner and then presented to our ER again and she sat in a room for 4 hours and she left AMA I just ripped the IV out and left. She was in [place] last week because her brother found her unresponsive and she was found to have pneumonia. She was in for 5 day there. She has been home since the Sunday before last. She is concerned re: her leukocytosis. She had an episode of lymph node swelling around about her 3rd ER presentation with pain in her head that radiates down her pillow. She was recently dx'ed with pulmonary fibrosis after having covid pneumonia twice. She sees a pulm for this. She says she is now in renal failure, and she feels it is r/t her excessive ASA and motrin and tylenol because she is always in pain from FELIX to back (chronic and has had back surgeries) and knee pain. This has been her habit for over 12 years. No known FHX of similar gastric/colon problems. No stomach or crc. Her mother was healthy except for alcoholism. She had an EGD/colonoscopy 4 years ago in [place] or and she was told I have a lot of ulcers. She was given a medicine that was too expensive and she has been taking pantoprazole for years. It was just dropped to 20mg qd from 40mg qd. 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 She continues to have nausea and vomiting, even smelling my own hand will make me vomit. She seems to have multiple episodes of black outs where she will not remember periods of time when she has been active. She once came home with clothes that were not mine. She does not do street drugs and does not drink ETOH. She has also waken up on her BR floor and not known how she got there. She is uncertain if anyone is ever going to head CT on her. She lost 27 lbs during this period, she has gained 6 back as now she can tolerate some yogurt. She will be having an US of her neck, she changed PCP's to Dr. Ernestine Oquendo at [facility]. I want to get stool samples, CRP, RAST and TTGA. I will get lexus EGD/colonoscopy. ROV 4 weeks. Please get records from [facility] from recent hospitalization. [facility] Medical History (Updated 06/13/23 @ 14:54 by SEB Lundberg) Gastroenteritis Lumbar back pain Well woman exam Bilateral knee pain COVID-19 virus infection Colon cancer screening Breast cancer screening by mammogram Cervical cancer screening Medicare annual wellness visit, initial Esophageal dilatation History of esophageal dilatation Surgical History (Updated 06/13/23 @ 14:54 by SEB Lundberg) H/O laparoscopy S/P section History of esophagogastroduodenoscopy (EGD) H/O colonoscopy History of back surgery History of carpal tunnel release History of facial surgery History of appendectomy Family History Father Brain tumor Son Alcohol abuse Mother Alcohol abuse Social History Household Members Other:: son Housing: Apartment Alcohol intake: never Patient Tobacco Use Status: Former Tobacco user Years Smoked: quit 2013 1/2 pack a day 30 years e-Cigarette/Vaping Use: Never Used Second Hand Smoke Exposure: No service: No Current occupational status: unemployed Sexual orientation: Straight/Heterosexual Gender identity: Female Cognitive needs: No Hearing needs: No Vision needs: No Female Reproductive History Menstrual Age of Menarche: 14 Review of Systems Const Denies fatigue, Denies fever(s), Reports frequent falls, Reports headache(s), Denies night sweats, Reports poor appetite, Reports weakness and Reports weight loss ENT Details: Abnormal sense of smell Reports Normal hearing present, Denies dental pain, Denies dysphagia, Reports headache(s), Denies hearing loss, Denies mouth pain, Reports neck pain, Denies odynophagia, Denies throat swelling, Denies tongue swelling and Reports other (Dentition adequate) Card Reports syncope and Reports dyspnea on exertion Resp Reports dyspnea on exertion GI Denies abdominal pain, Denies melena, Denies bloating, Denies hematochezia, Reports constipation, Denies GI cramping, Denies dysphagia, Denies excessive flatus, Denies early satiety, Denies heartburn, Reports diarrhea, Reports nausea, Denies odynophagia, Reports vomiting and Denies hematemesis Musc Reports back pain, Reports arthralgias and Reports neck pain Skin/Breast Denies pruritus, Denies lesions, Denies rash and Denies jaundice Neuro Reports Normal hearing present, Denies Abnormal speech present, Reports syncope, Reports frequent falls, Reports headache(s), Reports memory loss and Reports weakness Psych Reports abnormal sleep pattern, Reports anxiety, Reports depression, Reports memory loss and Reports mood swings Endo Denies fatigue Juan/Lymph Reports lymphadenopathy Aller/Immun Denies throat swelling and Denies tongue swelling Physical Exam Vital Signs: Last Vital Signs Pulse 111 H 06/13/23 11:57 BP 117/55 L 06/13/23 11:57 BMI result Body Mass Index 22.5 Const General: cooperative, no acute distress, well developed and well groomed Nutritional Appearance: average body habitus and well nourished Orientation/consciousness: oriented to person, oriented to place and oriented to time Limitations: No language barrier HEENT Head: Yes normocephalic and Yes atraumatic Eyes General: appearance normal, both eyes and all related structures Pupils: Equal, round and reactive pupils present Neck Neck: Yes normal visual inspection and Yes no lymphadenopathy Thyroid: Thyroid normal Resp Effort & Inspection: normal respiratory effort and able to speak in complete sentences Auscultation: crackles bilateral and diffuse Cardio Rate: regular rate Rhythm: regular rhythm Heart sounds: Normal, physiologic split S2 sound present Peripheral pulses: radial pulses present and posterior tibial pulses present GI Inspection: No distended and No Abdominal panniculus present Palpation (GI): Soft to palpation, nontender, no guarding, not rigid and No hepatosplenomegaly present Percussion: Yes normal to percussion Auscultation: normal bowel sounds Rectal Exam - Female: deferred Abdomen image: 2 1. Surgical scar Skin General skin exam: no rashes or lesions noted, turgor normal, skin not dry, no jaundice, No spider nevi and no striae Rashes: no rashes Nails: normal Neuro General: oriented to person, oriented to place and oriented to time Cranial nerves: Yes Equal, round and reactive pupils present and Yes Normal hearing present Speech: No Abnormal speech present Extrem General: Yes normal to inspection, No clubbing, No cyanosis and No edema Psych Appearance: grossly normal and well kempt Mental Status: other Speech and movement: Pressured speech present Affect: Animated affect present and Anxious affect present Attitude: cooperative Thought process: not confabulating, Perseverating thought process present, Tangential thought process present and Racing thoughts present Thought content: Depressive thoughts present Insight: Poor insight present (Psych) Judgement: Poor judgement present (Psych) Assessment & Plan Assessment & Plan (1) Nausea and vomiting: Code(s): R11.2 - Nausea with vomiting, unspecified (2) Diarrhea: Code(s): R19.7 - Diarrhea, unspecified (3) History of peptic ulcer disease: Code(s): Z87.11 - Personal history of peptic ulcer disease Plan She has had about 3 mos of trouble, she spent 7-9 weeks in bed as she was so weak she could not get up. She could not eat, the smell and taste of food would make her vomit. She could only take sips of fluids and she survived sipping on Protein shakes. She had to crawl to her BR she was so weak. No stool studies done despite copious watery diarrhea. She took imodium and then she could not produce a sample. Since she has had some stools that are like bricks or it is watery. Prior to this she struggles with CIC. Her father also struggled with CIC and would pass out from pushing. He also has leudocytosis and he of brain cancer. She is quite concerned that she may have some lingering malignancy since her leukocytosis is worsening per her report. Since these labs were taken at [facility] I do not have access to them. she presented to an Urgent Care in [place] and they said she had TICS, but no improvement. She called her PCP and he directed her to the ER and they said it was gastroenteritis, I just had to ride it out. She saw Dr. Miner and then presented to our ER again and she sat in a room for 4 hours and she left AMA I just ripped the IV out and left. She was in [place] last week because her brother found her unresponsive and she was found to have pneumonia. She was in for 5 day there. She has been home since the Sunday before last. She is concerned re: her leukocytosis. She had an episode of lymph node swelling around about her 3rd ER presentation with pain in her head that radiates down her pillow. She was recently dx'ed with pulmonary fibrosis after having covid pneumonia twice. She sees a pulm for this. She says she is now in renal failure, and she feels it is r/t her excessive ASA and motrin and tylenol because she is always in pain from FELIX to back (chronic and has had back surgeries) and knee pain. This has been her habit for over 12 years. No known FHX of similar gastric/colon problems. No stomach or crc. Her mother was healthy except for alcoholism. She had an EGD/colonoscopy 4 years ago in [place] or and she was told I have a lot of ulcers. She was given a medicine that was too expensive and she has been taking pantoprazole for years. It was just dropped to 20mg qd from 40mg qd. 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 She continues to have nausea and vomiting, even smelling my own hand will make me vomit. She seems to have multiple episodes of black outs where she will not remember periods of time when she has been active. She once came home with clothes that were not mine. She does not do street drugs and does not drink ETOH. She has also waken up on her BR floor and not known how she got there. She is uncertain if anyone is ever going to head CT on her. She lost 27 lbs during this period, she has gained 6 back as now she can tolerate some yogurt. She will be having an US of her neck, she changed PCP's to Dr. Ernestine Oquendo at [facility]. I want to get stool samples, CRP, RAST and TTGA. I will get lexus EGD/colonoscopy. ROV 4 weeks. Please get records from [facility] from recent hospitalization. Orders: Orders 2 CDiff Gene PCR Today R11.2 - Nausea with vomiting, unspecified, R19.7 - Diarrhea, unspecified Rast Allergen Today R11.2 - Nausea with vomiting, unspecified, R19.7 - Diarrhea, unspecified Calprotectin, Fecal Today R11.2 - Nausea with vomiting, unspecified, R19.7 - Diarrhea, unspecified GI Panel Today R11.2 - Nausea with vomiting, unspecified, R19.7 - Diarrhea, unspecified Leukocytes Stool Qualitative Today K52.9 - Noninfective gastroenteritis and colitis, unspecified, R11.2 - Nausea with vomiting, unspecified, R19.7 - Diarrhea, unspecified Ova and Parasite Today K52.9 - Noninfective gastroenteritis and colitis, unspecified, R11.2 - Nausea with vomiting, unspecified, R19.7 - Diarrhea, unspecified EGD/[place] Combo - GI Use Only Today R11.2 - Nausea with vomiting, unspecified, R19.7 - Diarrhea, unspecified Transglutaminase IgA Today R11.2 - Nausea with vomiting, unspecified, R19.7 - Diarrhea, unspecified Transglutaminase Ab IgG Today R11.2 - Nausea with vomiting, unspecified, R19.7 - Diarrhea, unspecified C Reactive Protein Today R11.2 - Nausea with vomiting, unspecified, R19.7 - Diarrhea, unspecified Coding Level of Care Code New Pt Level 3 (84361) Diagnoses Nausea and vomiting R11.2 Diarrhea R19.7 History of peptic ulcer disease Z87.11
[2023-06-13 11:57] VITALS: BP 117/55; PULSE 111; BMI 22.5
== END 2023-06-13 13:24 | disposition home or self-care (01) ==
PROVIDERS: PCP Internal Medicine; Visit Provider Nurse Practitioner
DX: R11.2 Nausea with vomiting, unspecified (principal); R19.7 Diarrhea, unspecified; Z87.11 Personal history of peptic ulcer disease
CPT/HCPCS: 99203

== ENCOUNTER 2023-06-26 18:00 | Outpatient (REF) | payer MEDICARE, MEDICAID, SELFPAY ==
[2023-06-27 13:02] LABS: Leukocytes Stool Qualitative NEGATIVE (NEGATIVE)
[2023-06-27 13:11] LABS: CDiff Gene PCR NEGATIVE (Negative)
[2023-06-27 14:19] LABS: Adenovirus F 40/41 Not Detected (Not Detect.); Astrovirus Not Detected (Not Detect.); Campylobacter Not Detected (Not Detect.); Cryptosporidium Not Detected (Not Detect.); Cyclospora cayetanensis Not Detected (Not Detect.); E. coli EAEC Not Detected (Not Detect.); E. coli EPEC Not Detected (Not Detect.); E. coli ETEC Not Detected (Not Detect.); E. coli STEC Not Detected (Not Detect.); Entamoeba histolytica Not Detected (Not Detect.); Giardia lamblia Not Detected (Not Detect.); Norovirus GI/GII Not Detected (Not Detect.); Plesiomonas shigelloides Not Detected (Not Detect.); Rotavirus A Not Detected (Not Detect.); Salmonella Not Detected (Not Detect.); Sapovirus Not Detected (Not Detect.); Shigella sp./EIEC Not Detected (Not Detect.); Vibrio Not Detected (Not Detect.); Vibrio Cholerae Not Detected (Not Detect.); Yersinia enterocolitica Not Detected (Not Detect.)
[2023-07-03 22:29] LABS: Calprotectin, Fecal 9 mcg/g
== END 2023-06-26 18:01 | disposition home or self-care (01) ==
LOC: HO.LNP 18:00
PROVIDERS: Visit Provider Nurse Practitioner
DX: R11.2 Nausea with vomiting, unspecified (principal); K52.9 Noninfective gastroenteritis and colitis, unspecified
CPT/HCPCS: 83993; 87177; 87209; 87493; 87507; 89055

== ENCOUNTER 2023-06-27 11:38 | Day surgery (SDC) | payer MEDICARE, MEDICAID, SELFPAY ==
[2023-06-21 15:21] VITALS: BMI 22.5
[2023-06-27 11:41] VITALS: BP 146/78; PULSE 100; RESP 20; TEMP 36.9; O2SAT 99
[2023-06-27 11:50] VITALS: BMI 22.0
[2023-06-27] MEDS: Lactated Ringers 1,000 ML 50 ML IVCONT (12:06)
--- NOTE | 2023-06-27 12:45 | P.HPSUR_ITS ---
Pre-Procedural Eval Section A Date of Service: 06/27/23 Section B Chief Complaint: Diarrhea, unspecified Relevant Family History (Specify if Yes): No Relevant Social History: None Present Medications: see Short Stay Collaborative assessment Medical History: Significant History (Pulmonary fibrosis chronic kidney disease bipolar disorder GERD Constipation History of abnormal Pap smear Thrombocytosis History of esophageal stricture with dilation Chronic neck and back pain Knee pain History of peptic ulcer disease) History of Previous Operations: Relevant previous surgery/procedure and date(s) (Back and neck surgery - RFA lumbar, ? cervical discectomy PSSP Carpal tunnel release Facial surgery - reconstruction Appendectomy EGD/colonoscopy-4 years ago in [place] Laparoscopy r/t infected IUD C section) Allergies: Allergies Allergy/AdvReac Type Severity Reaction Status Date / Time No Known Allergies Allergy Verified 06/13/23 12:02 Review of Systems Sugical H&P ROS: Negative: Constitution, Cardiovascular, Respiratory, Neurological, Psychiatric, Hem-Onc, Allergic/Immunologic, Gastrointestinal, Genitourinary, Musculoskeletal, Integumentary, Endocrine and Eyes/Ears/Nose/Throat Exam Surgical H&P Exam: Normal: HEENT, Normal: Heart, Normal: Lungs, Normal: Extremities, Normal: Abdomen, Normal: Skin and Normal: Neurological Plan Diagnosis/Plan: Unchanged I have reviewed the history and physical and performed a pertinent physical examination on my patient. No changes have occurred unless specified. * Time Spent With Patient Time: Total time managing care of this patient today ____ minutes.
--- NOTE | 2023-06-27 12:51 | HO.ANESPROP2 ---
HPI - Anesthesia Eval Consult details Narrative: GED, Colonoscopy PMF Active Problems Active Problems: All Active Problems (Updated 06/27/23 @ 12:05 by Joan Little, RN) Amnesia memory loss (Acute) History of peptic ulcer disease (Acute) Knee pain (Acute) Chronic neck and back pain (Acute) Diarrhea (Acute) Nausea and vomiting (Acute) Localized swelling, mass and lump, neck (Acute) Thrombocytosis (Acute) Insomnia (Acute) Dysplasia of cervix, low grade (JAYESH 1) (Acute) Cervical high risk HPV (human papillomavirus) test positive (Acute) Constipation (Acute) Allergic contact dermatitis (Acute) CKD (chronic kidney disease) (Acute) Pulmonary fibrosis (Acute) Bipolar disorder (Acute) GERD (gastroesophageal reflux disease) (Acute) Past Medical History Medical History (Updated 06/27/23 @ 12:05 by Joan Little RN) Hx: recurrent pneumonia History of renal insufficiency Hx of pulmonary fibrosis Bipolar disorder GERD (gastroesophageal reflux disease) Chronic renal insufficiency Insomnia Thrombocytosis Back pain Peptic ulcer Esophageal dilatation Gastroenteritis Lumbar back pain Well woman exam Bilateral knee pain History of esophageal dilatation COVID-19 virus infection Colon cancer screening Breast cancer screening by mammogram Cervical cancer screening Medicare annual wellness visit, initial Family History Family History Father Brain tumor Son Alcohol abuse Mother Alcohol abuse Family history of problems with anesthesia: No Surgical History Surgical History (Updated 06/13/23 @ 14:54 by SEB Lundberg) H/O laparoscopy S/P section History of esophagogastroduodenoscopy (EGD) H/O colonoscopy History of back surgery History of carpal tunnel release History of facial surgery History of appendectomy History of Problems with Anesthesia: No Social History Social History Household Members Other:: son Housing: Apartment Alcohol intake: never Patient Tobacco Use Status: Former Tobacco user Years Smoked: quit 2013 1/2 pack a day 30 years e-Cigarette/Vaping Use: Never Used Second Hand Smoke Exposure: No Are you DNR?: No Advance Directives: No Advance Directives Information Provided: Yes service: No Current occupational status: unemployed Sexual orientation: Straight/Heterosexual Gender identity: Female Cognitive needs: No Hearing needs: No Vision needs: No Meds Allergies Allergy/AdvReac Type Severity Reaction Status Date / Time No Known Allergies Allergy Verified 06/13/23 12:02 Active Medications: Current Medications Lactated Ringer's (Lr) 1,000 mls @ 50 mls/hr IVCONT .Q20H RAMÓN Last Admin: 06/27/23 12:06 Dose: 50 mls/hr Exam Height,Weight and Vital Signs: Height 5 ft 5 in Weight 59.92 kg Last Vital Signs Temp 98.4 F 06/27/23 11:41 Pulse 100 06/27/23 11:41 Resp 20 06/27/23 11:41 BP 146/78 H 06/27/23 11:41 Pulse Ox 99 06/27/23 11:41 O2 Del Method Room Air 06/27/23 11:41 Airway Mallampati Class: II TM Dist: >3cm Neck ROM: Limited Heart: rrr Lungs: cta Assessment and Plan Assessment Anesthesia Assessment: Anesthesia Plan Discussed Final Anesthetic Review Family History of Problems with Anesthesia: No History of Problems with Anesthesia: No NPO: Yes ASA Class: II Final Preanesthetic Review: No Changes in Pt Med Stat, Meds/Allgs Chart Reviewed, Consent Obtained/Reviewed and Anes Risks/Benef Reviewed Patient Risk: Intermediate Procedure Risk: Intermediate Anesthetic Plan Anesthetic Plan: MAC: and Agree w/ Assess. and Plan Disposition: Standard PACU
--- NOTE | 2023-06-27 13:12 | P.OP_ITS ---
Operative Note Operative Note Date of Service: 06/27/23 Narrative: Operative Information Procedure Description: EGD, Colonoscopy Indication: altered bowel habit and weight loss Anesthesia: MAC FLEXIBLE TRANSORAL UPPER GASTROINTESTINAL ENDOSCOPY AND COLONOSCOPY PROCEDURE NOTE UPPER ENDOSCOPY Consent: Indications for the procedure and potential complications of bleeding, perforation, reaction to medications and missed diagnosis were discussed with the patient and informed consent was obtained. Instrument: Olympus GIF H 190 J mid size upper endoscope Monitoring: Vital signs and clinical assessment, continuous EKG monitoring, Pulse oximetry, Carbon Dioxide monitoring and blood pressure monitoring were done throughout the procedure. Procedure: The patient was placed in the left lateral decubitis position and pre-procedure medications were administered and a bite block was placed. The endoscope was inserted into the mouth and advanced under direct vision to the third part of duodenum. A careful inspection was made as the upper endoscope was withdrawn including a retroflexed examination of the proximal stomach; Findings and interventions are described below. Findings: Larynx:normal Esophagus: GE junction at 38 cm, diaphragm hiatus at 38 cm, normal mucosa Stomach: Patchy erythema and granularity. Biopsies were obtained. Grade 2 flap valve on retroflexed examination of the cardia. Duodenum: Normal bulb and descending duodenum, bx taken Intervention: Biopsies as noted above COLONOSCOPY Instrument: Olympus variable stiffness pediatric scope 190L Colonoscopy Monitoring: Vital signs and clinical assessment, continuous EKG monitoring, Pulse oximetry, Carbon Dioxide monitoring and blood pressure monitoring were done throughout the procedure. Colon withdrawal time was 8 minutes. Procedure: The patient was placed in the left lateral decubitis position and pre-procedure medications were administered. After a digital rectal examination of the ano-rectum, the video colonoscope was inserted into the rectum and advanced through the colon to the cecum/TI. The colonoscope was slowly withdrawn in a retrograde panoramic fashion and the colon mucosa was carefully examined including a retroflexed view of the rectum. Findings and interventions are described below. Procedure Difficulty:easy Findings: Terminal Ileum-normal, bx taken random colon bx taken Cecum:normal Ascending Colon: normal Transverse Colon -normal Descending Colon:normal Sigmoid Colon: normal Rectum: Retroflexion with medium sized internal hemorrhoids, grade I Anorectum - normal Colon preparation: [place] Bowel Preparation Scale Right colon; 3 Transverse colon: 3 Left colon; 3 (0 = Unprepared colon segment with mucosa not seen due to solid stool that cannot be cleared. 1 = Portion of mucosa of the colon segment seen, but other areas of the colon segment not well seen due to staining, residual stool and/or opaque liquid. 2 = Minor amount of residual staining, small fragments of stool and/or opaque liquid, but mucosa of colon segment seen well. 3 = Entire mucosa of colon segment seen well with no residual staining, small fragments of stool or opaque liquid) Impression and Post Procedure Diagnosis: Endoscopy Findings: gastritis Colonoscopy Findings: internal hemorrhoids Plan: Await Pathology results Repeat Colonoscopy in 10 years or earlier if clinically indicated High fiber diet leaflet avoid straining at stool, epsom salts and sitz bath, anusol supps or cream if h pylori pos then treat Above findings were reviewed with the patient and relevant handouts were provided if indicated.
[2023-06-27 13:37] VITALS: BP 94/48; PULSE 83; RESP 16; TEMP 36.7; O2SAT 97
[2023-06-27 13:52] VITALS: BP 127/69; PULSE 75; RESP 18; O2SAT 100
[2023-06-27 14:07] VITALS: BP 133/70; PULSE 80; RESP 17; TEMP 36.9; O2SAT 100
== END 2023-06-27 14:44 | disposition home or self-care (01) ==
PROVIDERS: PCP Internal Medicine; Visit Provider Internal Medicine Gastroenterology
PROC: (CPT 45380; principal; 2023-06-27 14:30)
DX: R19.4 Change in bowel habit (principal); K64.0 First degree hemorrhoids; K52.9 Noninfective gastroenteritis and colitis, unspecified; K29.50 Unspecified chronic gastritis without bleeding; K21.9 Gastro-esophageal reflux disease without esophagitis; R11.2 Nausea with vomiting, unspecified; K44.9 Diaphragmatic hernia without obstruction or gangrene; Z87.11 Personal history of peptic ulcer disease; R51.9 Headache, unspecified; R63.4 Abnormal weight loss; Z68.22 Body mass index [BMI] 22.0-22.9, adult; N18.9 Chronic kidney disease, unspecified; J84.10 Pulmonary fibrosis, unspecified; F31.9 Bipolar disorder, unspecified; Z87.891 Personal history of nicotine dependence; Z86.16 Personal history of COVID-19
CPT/HCPCS: 45380; 43239; 88305; 88342; J2250; J2704

== ENCOUNTER → 2023-06-27 11:38 | Outpatient (BNV) | payer MEDICARE, MEDICAID, SELFPAY | PROVIDERS: PCP Internal Medicine; Visit Provider Internal Medicine Gastroenterology | DX: R19.4 Change in bowel habit (principal); R63.4 Abnormal weight loss; K64.0 First degree hemorrhoids; K29.70 Gastritis, unspecified, without bleeding | CPT/HCPCS: 43239; 45380 ==